=== PATIENT | female | born 1980 | race African-American/Black ===

== ENCOUNTER 2018-03-21 13:24 | Emergency (ER) | payer MEDICAID ==
[~2018-03-21] VITALS: Ht 162.6 cm; Wt 79.4 kg
[2018-03-21 13:29] VITALS: BP 137/74
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
[2018-03-21] MEDS ORDERED: Ketorolac 30mg Inj IM ONE (14:00)
--- NOTE | 2018-03-21 15:04 | Diagnostic Imaging Report ---
Indication: Knee pain Technique: 3 views of the right knee Comparison: None Findings: Bony alignment is normal. No acute fractures. No dislocations. There is questionably a small suprapatellar effusion. Impression: Possible small joint effusion. No acute bony trauma
[2018-03-21] MEDS ORDERED: TYLENOL EXTRA500 MG ORAL (15:16)
[2018-03-21 15:22] VITALS: BP 132/69
== END 2018-03-21 15:23 | disposition home or self-care (01) ==
LOC: EMR 14:09
DX: S80.01XA Contusion of right knee, initial encounter (principal); V03.10XA Pedestrian on foot injured in collision with car, pick-up truck or van in traffic accident, initial encounter; Y92.488 Other paved roadways as the place of occurrence of the external cause; F17.200 Nicotine dependence, unspecified, uncomplicated
CPT/HCPCS: 73562; 96372; 99284; J1885

== ENCOUNTER 2020-01-18 15:22 | Emergency (ER) | payer SELFPAY ==
[~2020-01-18] VITALS: Ht 162.6 cm; Wt 72.6 kg
[~2020-01-18 15:22] MED LIST: TYLENOL EXTRA500 MG ORAL
[2020-01-18] MEDS ORDERED: Morphine Sulfate 4mg/ml Inj (IV USE ONLY) IVP ONE (15:45)
--- NOTE | 2020-01-18 15:50 | Emergency Room Report ---
History of Present Illness General Chief Complaint: Abdominal Pain Source: Patient Present Illness HPI Disclaimer: Please note that this report is being documented using [employer] technology. This can lead to erroneous entry secondary to incorrect interpretation by the dictating instrument. HPI: 39-year-old female history of uterine fibroids presents for evaluation of lower pelvic pain. Pain worsening over the past 2 days. Denies vaginal bleeding, vaginal discharge, dysuria, hematuria. She reports cramping pain in the lower pelvis that is been steadily worsening and exacerbated by bending and twisting movements, jostling in a car, changing position. Denies nausea, vomiting. She has not had a bowel movement 2 days and states she has not passed gas in 1 day. Denies diarrhea. Denies chest pain, shortness of breath, cough, fever, chills. Patient states her [facility] wanted her to have a hysterectomy but the patient does not want to have surgery for the fibroids at this time. PMH: Uterine fibroids PSH: Allergies: Denied Social Hx: Occasional tobacco, social alcohol Allergies: Coded Allergies: No Known Allergies (Unverified , 03/21/18) COVID-19 Screening Contact w/high risk pt: No Experienced COVID-19 symptoms?: No COVID-19 Testing performed STOCK ROOM MANAGER: No Patient History Last Menstrual Period: 01/12/2020 Now: No Nursing Documentation-PMH Past Medical History: No Stated History Review of Systems All Other Systems: negative except mentioned in HPI Physical Exam Vital Signs Date Time Temp Pulse Resp B/P (MAP) Pulse Ox O2 Delivery O2 Flow Rate FiO2 01/18/20 15:29 97.9 91 24 112/73 (86) 95 Room Air General: Awake and alert, appears uncomfortable HEENT: NC/AT. EOMI. Cardiovascular: RRR. S1 and S2 normal. No murmur appreciated Resp: Normal work of breathing. No cough, wheezing or crackles appreciated Abdomen: Abdomen is soft, nondistended. Tender palpation in the suprapubic region right and left lower quadrants without rebound or mass palpable. No tenderness in the upper quadrants, negative Elise's. Skin: Intact. No abrasions, laceration or rash over the exposed skin MSK: Normal tone and bulk. Moving all extremities. No obvious deformity. Neuro: Awake and alert. Mentating appropriately. Medical Decision Making Diagnostic Impression: Primary Impression: Fibroid uterus Additional Impressions: Microcytic anemia UTI (urinary tract infection) ER Course Is a 39-year-old female history of uterine fibroids presenting for evaluation of worsening abdominal pain and decreased bowel movements over the past 2 days. Concern for enlarging uterine fibroids, ovarian cyst, bowel obstruction, appendicitis, UTI, pyelonephritis among others. Ordered analgesics, broad labs , ultrasound and CT scan of the abdomen. Ultrasound and CT both showed fibroid uterus. No evidence of ovarian torsion, no bowel obstruction, no other abnormalities noted aside from dependent edema in the buttocks though the patient has no signs of infection otherwise. We will follow-up with [facility] for further treatment options regarding her large uterine fibroids. Will start the patient on iron supplements for mild microcytic anemia. Urinalysis concerning for an acute urinary tract infection. Treated with a gram of ceftriaxone in the ED and discharged on oral antibiotics for 1 week. Patient will follow-up with [facility] and PMD. Stable for outpatient follow-up. Discussed reasons to return to the emergency department. She understands and agrees with this treatment plan. Laboratory Tests Test 01/18/20 15:55 01/18/20 16:20 White Blood Count 15.2 K/UL (4.8-10.8) H Red Blood Count 5.22 M/UL (4.20-5.40) Hemoglobin 11.4 G/DL (12.0-16.0) L Hematocrit 36.7 % (37.0-47.0) L Mean Corpuscular Volume 70 FL (80-99) L Mean Corpuscular Hemoglobin 21.9 PG (27.0-31.0) L Mean Corpuscular Hemoglobin Concent 31.1 G/DL (32.0-36.0) L Red Cell Distribution Width 18.1 % (11.6-14.8) H Platelet Count 241 K/UL (150-450) Mean Platelet Volume 10.3 FL (6.5-10.1) H Neutrophils (%) (Auto) 75.2 % (45.0-75.0) H Lymphocytes (%) (Auto) 15.3 % (20.0-45.0) L Monocytes (%) (Auto) 6.3 % (1.0-10.0) Eosinophils (%) (Auto) 1.6 % (0.0-3.0) Basophils (%) (Auto) 1.6 % (0.0-2.0) Sodium Level 144 MMOL/L (136-145) Potassium Level 4.4 MMOL/L (3.5-5.1) Chloride Level 105 MMOL/L (98-107) Carbon Dioxide Level 26 MMOL/L (21-32) Anion Gap 13 mmol/L (5-15) Blood Urea Nitrogen 8 mg/dL (7-18) Creatinine 1.0 MG/DL (0.55-1.30) Estimated Glomerular Filtration Rate > 60 mL/min (>60) Glucose Level 98 MG/DL (74-106) Calcium Level 9.8 MG/DL (8.5-10.1) Total Bilirubin 0.4 MG/DL (0.2-1.0) Aspartate Amino Transferase (AST) < 5 U/L (15-37) L Alanine Aminotransferase (ALT) 41 U/L (12-78) Alkaline Phosphatase 80 U/L (46-116) Total Protein 8.5 G/DL (6.4-8.2) H Albumin 4.0 G/DL (3.4-5.0) Globulin 4.5 g/dL Albumin/Globulin Ratio 0.9 (1.0-2.7) L Lipase 337 U/L (73-393) Urine Color Moore Urine Appearance Very cloudy Urine pH 8 (4.5-8.0) Urine Specific [place] 1.010 (1.005-1.035) Urine Protein 3+ (NEGATIVE) H Urine Glucose (UA) Negative (NEGATIVE) Urine Ketones 1+ (NEGATIVE) H Urine Blood 5+ (NEGATIVE) H Urine Nitrite Negative (NEGATIVE) Urine Bilirubin Negative (NEGATIVE) Urine Urobilinogen Normal MG/DL (0.0-1.0) Urine Leukocyte Esterase 3+ (NEGATIVE) H Urine RBC 40-60 /HPF (0 - 2) H Urine WBC Tntc /HPF (0 - 2) H Urine Squamous Epithelial Cells Many /LPF (NONE/OCC) H Urine Bacteria Many /HPF (NONE) H Urine HCG, Qualitative Negative (NEGATIVE) CT/MRI/US Diagnostic Results CT/MRI/US Diagnostic Results : Impression Findings: Uterus is enlarged, measuring 14.7 cm length by 8.5 cm AP. A large dominant fibroid is seen within the uterus, measuring 9.8 cm in diameter. It contains calcifications. The endometrium is not thickened, measuring 2 mm thick. The right ovary measures 3.5 cm in length. The left ovary measures 3.6 cm length. Both ovaries demonstrate normal flow on Doppler. No free cul-de-sac fluid. Small cervical nabothian cyst incidentally noted. Impression: Enlarged fibroid uterus Normal ovaries Incidental finding small cervical nabothian cyst Dictated By: Robin Vail MD Electronically Signed By: Robin Vail MD Signed Date/Time 01/18/20 0453 CC: Ned Denise MD IMPRESSION: 1. Reportedly, this patient has laboratory and clinical findings suggesting UTI. 2. No acute abnormality definitively identified to account for patient presentation. 3. Recommend outpatient MRI pelvis without and with IV contrast to further evaluate uterine mass, which likely represents degenerating fibroid, but which exhibits some potentially atypical characteristics. Neoplasm thought less likely but not definitively excluded. 4. Bilateral posterior subcutaneous soft tissue edema and skin thickening over the buttocks as above, correlate for prior operative procedure, cellulitis, contusion, or other acute process. Communications: 01/18/20 17:42 Call Doctor Regarding Other, called BETH Marcelino on 01/17 17: 41 (-07:00) Dictated By: Cisco Bassett MD Electronically Signed By: Cisco Bassett MD Signed Date/Time 01/18/20 1515 CC: Ned Denise MD Last Vital Signs Date Time Temp Pulse Resp B/P (MAP) Pulse Ox O2 Delivery O2 Flow Rate FiO2 01/18/20 15:29 97.9 91 24 112/73 (86) 95 Room Air Disposition: HOME, SELF-CARE Condition: Stable Scripts Iron,Carbonyl/Vit C/Vit B12/Fa (IRON 100 PLUS TABLET) 1 Each Tablet 1 EACH PO DAILY, #30 TAB Prov: Ned Denise MD 01/18/20 Hydrocodone Bit/Acetaminophen 5-325* (NORCO 5-325 TABLET*) 1 Each Tablet 1 TAB ORAL Q6H PRN for FOR PAIN, #10 TAB 0 Refills Prov: Ned Denise MD 01/18/20 Nitrofurantoin Monohyd/M-Cryst* (MACROBID 100 MG*) 100 Mg Capsule 100 MG ORAL EVERY 12 HOURS for 7 Days, #14 CAP Prov: Ned Denise MD 01/18/20 Ned Denise MD Jan 18, 2020:50
[2020-01-18] MEDS ORDERED: Omnipaque-300 100ml vial INJ PRN (16:00)
[2020-01-18 16:22] LABS: BASOPHILS % (AUTO) 1.6 % (0.0-2.0); EOSINOPHILS % (AUTO) 1.6 % (0.0-3.0); HEMATOCRIT 36.7 % (37.0-47.0); HEMOGLOBIN 11.4 G/DL (12.0-16.0); LYMPHOCYTES % (AUTO) 15.3 % (20.0-45.0); MEAN CORPUSCULAR VOLUME 70 FL (80-99); MONOCYTES % (AUTO) 6.3 % (1.0-10.0); NEUTROPHILS % (AUTO) 75.2 % (45.0-75.0); PLATELET COUNT 241 K/UL (150-450); RED BLOOD COUNT 5.22 M/UL (4.20-5.40); RED CELL DISTRIBUTION WIDTH 18.1 % (11.6-14.8); WHITE BLOOD COUNT 15.2 K/UL (4.8-10.8)
[2020-01-18 16:38] LABS: BLOOD UREA NITROGEN 8 mg/dL (7-18); CALCIUM 9.8 MG/DL (8.5-10.1); CARBON DIOXIDE 26 MMOL/L (21-32); CHLORIDE 105 MMOL/L (98-107); POTASSIUM 4.4 MMOL/L (3.5-5.1); SODIUM 144 MMOL/L (136-145)
[2020-01-18 16:40] LABS: ALANINE AMINOTRANSFERASE 41 U/L (12-78); ALBUMIN/GLOBULIN RATIO 0.9 (1.0-2.7); ALKALINE PHOSPHATASE 80 U/L (46-116); ANION GAP 13 mmol/L (5-15); ASPARTATE AMINO TRANSFERASE < 5 U/L (15-37); BILIRUBIN,TOTAL 0.4 MG/DL (0.2-1.0)
[2020-01-18] MEDS ORDERED: IRON 100 PLUS1 EACH PO ×3 (16:49→18:04)
[2020-01-18 16:59] LABS: APPEARANCE,URINE VERY CLOUDY; BILIRUBIN, URINE NEGATIVE (NEGATIVE); COLOR,URINE ORANGE; GLUCOSE, URINE (UA) NEGATIVE (NEGATIVE); KETONES,URINE 1+ (NEGATIVE); LEUKOCYTE ESTERASE ,URINE 3+ (NEGATIVE); NITRITE,URINE NEGATIVE (NEGATIVE); PH,URINE 8 (4.5-8.0); PROTEIN,URINE 3+ (NEGATIVE); UROBILINOGEN,URINE NORMAL MG/DL (0.0-1.0)
[2020-01-18 17:14] VITALS: BP 112/73
--- NOTE | 2020-01-18 17:28 | Diagnostic Imaging Report ---
Indication: Pelvic and abdominal pain, history of fibroids, apparently negative per ER physician report Technique: Transabdominal and transvaginal images of the pelvis. Doppler interrogation of the ovaries Comparison: none Findings: Uterus is enlarged, measuring 14.7 cm length by 8.5 cm AP. A large dominant fibroid is seen within the uterus, measuring 9.8 cm in diameter. It contains calcifications. The endometrium is not thickened, measuring 2 mm thick. The right ovary measures 3.5 cm in length. The left ovary measures 3.6 cm length. Both ovaries demonstrate normal flow on Doppler. No free cul-de-sac fluid. Small cervical nabothian cyst incidentally noted. Impression: Enlarged fibroid uterus Normal ovaries Incidental finding small cervical nabothian cyst
--- NOTE | 2020-01-18 17:45 | Diagnostic Imaging Report ---
EXAM: CT Abdomen and Pelvis With Intravenous Contrast CLINICAL HISTORY: ABD PAIN TECHNIQUE: Axial computed tomography images of the abdomen and pelvis with intravenous contrast. CTDI is 6 mGy and DLP is 321.1 mGy-cm. One or more of the following dose reduction techniques were used: automated exposure control, adjustment of the mA and/or kV according to patient size, use of iterative reconstruction technique. Coronal and sagittal reformatted images were created and reviewed. COMPARISON: Pelvic ultrasound 01/18/2020 FINDINGS: Lung bases: Unremarkable. No mass. No consolidation. ABDOMEN: Liver: Unremarkable. No mass. Gallbladder and bile ducts: Unremarkable. No calcified stones. No ductal dilation. Pancreas: Unremarkable. No mass. No ductal dilation. Spleen: Unremarkable. No splenomegaly. Adrenals: Unremarkable. No mass. Kidneys and ureters: Subcentimeter right renal likely benign cysts requiring no additional follow-up. Otherwise unremarkable kidneys. No hydronephrosis. Stomach and bowel: Unremarkable. No obstruction. No mucosal thickening. PELVIS: Appendix: No findings to suggest acute appendicitis. Bladder: Unremarkable. No mass. Reproductive: Prominently enlarged uterus with large heterogeneous, hypoattenuating mass and scattered areas of calcification and possible soft tissue enhancement; uterus measures in aggregate total 12.5 x 9 x 14. 5 cm. This is not well evaluated on this study. Same-day pelvic ultrasound demonstrates a mass which is not definitively well characterized. ABDOMEN and PELVIS: Intraperitoneal space: Unremarkable. No free air. No significant fluid collection. Bones/joints: No acute fracture. No dislocation. Soft tissues: Bilateral posterior buttock subcutaneous soft tissue edema, overlying skin thickening, and multiple small round intermediate attenuation nodular foci measuring up to 1.1cm. Vasculature: Unremarkable. No abdominal aortic aneurysm. Lymph nodes: Unremarkable. No enlarged lymph nodes. Other findings: Reportedly, this patient has laboratory and clinical findings suggesting UTI. IMPRESSION: 1. Reportedly, this patient has laboratory and clinical findings suggesting UTI. 2. No acute abnormality definitively identified to account for patient presentation. 3. Recommend outpatient MRI pelvis without and with IV contrast to further evaluate uterine mass, which likely represents degenerating fibroid, but which exhibits some potentially atypical characteristics. Neoplasm thought less likely but not definitively excluded. 4. Bilateral posterior subcutaneous soft tissue edema and skin thickening over the buttocks as above, correlate for prior operative procedure, cellulitis, contusion, or other acute process. <MYCVCSECTION> Communications: 01/18/20 17:42 Call Doctor Regarding Other, called BETH Marcelino on 01/17 17: 41 (-07:00)
[2020-01-18] MEDS ORDERED: cefTRIAXone 1 GM in NS 55 ML IVPB ONE (18:00)
[2020-01-18] MEDS ORDERED: NORCO 5-325 TA1 EAC1 ORAL (18:03)
[2020-01-18] MEDS ORDERED: NITROFURANTOIN100 M2 ORAL (18:03)
[2020-01-18 18:38] VITALS: BP 118/75
== END 2020-01-18 18:38 | disposition home or self-care (01) ==
LOC: EMR 17:30
DX: D25.9 Leiomyoma of uterus, unspecified (principal); D50.9 Iron deficiency anemia, unspecified; N39.0 Urinary tract infection, site not specified
CPT/HCPCS: 36415; 74177; 76830; 76856; 80053; 81003; 81025; 83690; 85025; 87086; 96365; 96375; 99284; J0696; J2270; J2405; Q9965